=== PATIENT | female | born 1975 | race Caucasian/White ===

== ENCOUNTER 2020-12-03 11:13 | Outpatient (CLI) | payer MEDICARE, MEDICAID | END 2020-12-03 11:14 | disposition home or self-care (01) | LOC: BICMAMMO 11:13 | PROVIDERS: ATTEND Registered Nurse | DX: Z12.31 Encounter for screening mammogram for malignant neoplasm of breast (principal); Z80.3 Family history of malignant neoplasm of breast | CPT/HCPCS: 77063; 77067 ==

== ENCOUNTER 2021-05-09 13:32 | Outpatient (CLI) | payer MEDICARE, MEDICAID ==
[2021-05-09] MEDS ORDERED: Iopamidol 370 76% 100 ML VIAL ONE (15:12)
== END 2021-05-09 13:33 | disposition home or self-care (01) ==
LOC: BICCT 13:32
PROVIDERS: ATTEND Registered Nurse
DX: R10.84 Generalized abdominal pain (principal); N83.8 Other noninflammatory disorders of ovary, fallopian tube and broad ligament; E27.8 Other specified disorders of adrenal gland; N28.9 Disorder of kidney and ureter, unspecified; Z90.49 Acquired absence of other specified parts of digestive tract
CPT/HCPCS: 74177; Q9967

== ENCOUNTER 2022-05-23 11:46 | Outpatient (CLI) | payer MEDICARE, OTHER | END 2022-05-23 11:47 | disposition home or self-care (01) | LOC: BICMAMMO 11:46 | PROVIDERS: ATTEND Registered Nurse | DX: Z12.31 Encounter for screening mammogram for malignant neoplasm of breast (principal); Z80.3 Family history of malignant neoplasm of breast | CPT/HCPCS: 77063; 77067 ==

== ENCOUNTER 2022-06-13 10:31 | Inpatient (IN) | payer OTHER ==
[2022-06-13] MEDS ORDERED: hydrALAZINE 20 MG/ML VIAL SLOW IVP PRN (13:51)
[2022-06-13] MEDS ORDERED: Ondansetron PF 4 MG/2 ML Vial IVP PRN (13:51)
[2022-06-13] MEDS ORDERED: Dextrose 50% Abboject 50 ML SYRINGE SLOW IVP PRN (13:51)
[2022-06-13] MEDS ORDERED: Dextrose 5% in Water 1,000 ML IV PRN (13:51)
[2022-06-13] MEDS ORDERED: TETANUS, DIPHTHERIA TOX,ADULT (TDVAX) 0.5 ML VIAL IM ONE (13:51)
[2022-06-13] MEDS ORDERED: Promethazine HCl 25 MG/ML VIAL IM PRN (13:51)
[2022-06-13] MEDS ORDERED: Ondansetron ODT 4 MG TAB PO PRN (13:51)
[2022-06-13] MEDS ORDERED: Morphine 4 MG/ML VIAL SLOW IVP PRN ×2 (13:51→14:02)
[2022-06-13] MEDS ORDERED: Acetaminophen/Codeine 30-300mg Tablet PO PRN (13:55)
[2022-06-13] MEDS ORDERED: Cyclobenzaprine 10 MG TAB PO PRN (13:55)
[2022-06-13] MEDS ORDERED: Sodium Chloride 0.9% 1,000 ML IV SCH (14:00)
[2022-06-13] MEDS ORDERED: Ibuprofen 200 MG TAB PO SCH (14:15)
[2022-06-13] MEDS ORDERED: Acetaminophen 325 MG TAB PO SCH (14:15)
[2022-06-13] MEDS ORDERED: Insulin Regular 300 UNITS/3 ML VIAL SC PRN ×2 (14:44)
[2022-06-13] MEDS: Acetaminophen 325 MG TAB PO SCH ×2 (17:53→23:52)
[2022-06-13] MEDS ORDERED: Gabapentin 400 MG CAP PO SCH (21:00)
[2022-06-13] MEDS: Senokot S 8.6-50 MG TAB PO SCH (21:24)
[2022-06-13] MEDS: Sodium Chloride 0.9% 1,000 ML IV SCH (21:24)
[2022-06-13] MEDS: Famotidine 20 MG TAB PO SCH (21:24)
[2022-06-13] MEDS: lamoTRIgine 100 MG TAB PO SCH (21:24)
[2022-06-13] MEDS: Gabapentin 400 MG CAP PO SCH (21:24)
[2022-06-13] MEDS: Zonisamide 100 MG CAP PO SCH (21:25)
[2022-06-13] MEDS: Ibuprofen 200 MG TAB PO SCH (21:27)
[2022-06-14] MEDS: Acetaminophen 325 MG TAB PO SCH ×4 (06:04→22:08)
[2022-06-14] MEDS: Sodium Chloride 0.9% 1,000 ML IV SCH (06:04)
[2022-06-14] MEDS: Levothyroxine Sodium 125 MCG TAB PO SCH (06:04)
[2022-06-14] MEDS: Ibuprofen 200 MG TAB PO SCH ×3 (06:04→22:08)
[2022-06-14 08:13] LABS: #Eosinphils 0.1 thou/uL (0.0-0.7); #Lymphocytes 1.9 thou/uL (1.20-3.40); #Monocytes 0.6 thou/uL (0.11-0.59); %Basophils 0.3 % (0.0-1.0); %Eosinophils 0.8 % (0.0-10.0); %Lymphocytes 22.2 % (21.0-51.0); %Monocytes 7.4 % (0.0-10.0); %Neutrophils 69.2 % (42.0-75.0); Hemoglobin 13.5 g/dL (12.0-16.0); Mean Corpuscular HGB CONC 33.8 g/dL (32.0-36.0); Mean Corpuscular Hemoglobin 32.6 pg (27.0-31.0); Mean Corpuscular Volume 96.5 fL (78.0-98.0); Mean Platelet Volume 6.2 fL (7.4-10.4); Platelet Count 316 thou/uL (130-400); RBC Distribution Width 11.4 % (11.5-14.5); Red Blood Cell (RBC) Count 4.13 mill/uL (4.20-5.40); White Blood Cell (WBC) Count 8.7 thou/uL (4.8-10.8)
[2022-06-14 08:26] LABS: Anion Gap 12 mmol/L (10-20); BUN (Urea Nitrogen) 7 mg/dL (7.0-18.7); Calc. Creatinine Clearance 227 mL/min (70-130); Calcium 8.5 mg/dL (7.8-10.44); Carbon Dioxide 20 mmol/L (22-29); Chloride 110 mmol/L (98-107); Estimated GFR 114; Glucose 135 mg/dL (70-105); Phosphorus 2.2 mg/dL (2.3-4.7); Potassium 3.9 mmol/L (3.5-5.1); Sodium 138 mmol/L (136-145)
[2022-06-14] MEDS ORDERED: Gabapentin 400 MG CAP PO SCH ×2 (09:00→14:00)
[2022-06-14 09:08] LABS: SARS-CoV-2 NAA Rapid Test Not Detected (NotDetected)
[2022-06-14] MEDS: Gabapentin 400 MG CAP PO SCH ×2 (10:06→22:06)
[2022-06-14] MEDS: Famotidine 20 MG TAB PO SCH ×2 (10:06→22:07)
[2022-06-14] MEDS: lamoTRIgine 100 MG TAB PO SCH ×2 (10:07→22:07)
[2022-06-14] MEDS: Senokot S 8.6-50 MG TAB PO SCH ×2 (10:40→22:18)
[2022-06-14] MEDS: Polyethylene Glycol 3350 17 GM Packet PO SCH (10:40)
[2022-06-14] MEDS ORDERED: Fentanyl 100 MCG/2 ML VIAL ONE (11:51)
[2022-06-14] MEDS ORDERED: fentaNYL Citrate/PF 100 MCG/2 ML SYRINGE ONE (12:22)
[2022-06-14] MEDS ORDERED: CEFAZOLIN 2 GM VIAL ONE (12:41)
[2022-06-14] MEDS ORDERED: Sodium Chloride 0.9% 100 ML ONE (12:41)
[2022-06-14] MEDS ORDERED: Lidocaine 1% MPF 2 ML VIAL ONE (12:54)
[2022-06-14] MEDS ORDERED: Ropivacaine 0.5% HCl/PF (150 MG/30 ML VIAL) ONE (12:54)
[2022-06-14] MEDS ORDERED: Metoclopramide HCl 10 MG/2 ML VIAL ONE (12:54)
[2022-06-14] MEDS ORDERED: Rocuronium Bromide 10 MG/ML (10ML VIAL) ONE (12:54)
[2022-06-14] MEDS ORDERED: PROPOFOL 200 MG/20 ML VIAL ONE (12:54)
[2022-06-14] MEDS ORDERED: Ondansetron PF 4 MG/2 ML Vial ONE (12:54)
[2022-06-14] MEDS ORDERED: CEFAZOLIN 2 GM in Sodium Chloride 0.9% 100 ML IVPB SCH (13:00)
[2022-06-14] MEDS ORDERED: SUGAMMADEX SODIUM 200 MG/2 ML VIAL ONE (14:49)
[2022-06-14] MEDS ORDERED: hydrALAZINE 20 MG/ML VIAL ONE (15:24)
[2022-06-14] MEDS: Acetaminophen/Codeine 30-300mg Tablet PO SCH ×3 (18:06→23:12)
[2022-06-14] MEDS: CEFAZOLIN 2 GM in Sodium Chloride 0.9% 100 ML IVPB SCH (22:07)
[2022-06-14] MEDS: Zonisamide 100 MG CAP PO SCH (22:22)
[2022-06-15] MEDS: Acetaminophen 325 MG TAB PO SCH (05:03)
[2022-06-15] MEDS: Acetaminophen/Codeine 30-300mg Tablet PO SCH ×2 (05:04→12:45)
[2022-06-15] MEDS: Ibuprofen 200 MG TAB PO SCH (05:05)
[2022-06-15] MEDS: Levothyroxine Sodium 125 MCG TAB PO SCH (05:05)
[2022-06-15] MEDS: CEFAZOLIN 2 GM in Sodium Chloride 0.9% 100 ML IVPB SCH (05:06)
[2022-06-15] MEDS: Senokot S 8.6-50 MG TAB PO SCH (09:23)
[2022-06-15] MEDS: Famotidine 20 MG TAB PO SCH (09:23)
[2022-06-15] MEDS: Polyethylene Glycol 3350 17 GM Packet PO SCH (09:23)
[2022-06-15] MEDS: Gabapentin 400 MG CAP PO SCH (09:23)
[2022-06-15] MEDS: lamoTRIgine 100 MG TAB PO SCH (09:31)
[2022-06-15 11:45] VITALS: BP 134/87; TEMP 98.5
== END 2022-06-15 14:39 | disposition home or self-care (01) | DRG 494 ==
LOC: SJJU 10:31
PROVIDERS: ADMIT Surgery; ATTEND Surgery
PROC: 0PSF04Z Reposition Right Humeral Shaft with Internal Fixation Device, Open Approach (ICD-10-PCS; principal; 2022-06-14)
DX: S42.431A Displaced fracture (avulsion) of lateral epicondyle of right humerus, initial encounter for closed fracture (principal); Z20.822 Contact with and (suspected) exposure to COVID-19; S42.451A Displaced fracture of lateral condyle of right humerus, initial encounter for closed fracture; G40.909 Epilepsy, unspecified, not intractable, without status epilepticus; E11.9 Type 2 diabetes mellitus without complications; E03.9 Hypothyroidism, unspecified; S62.624A Displaced fracture of middle phalanx of right ring finger, initial encounter for closed fracture; W18.11XA Fall from or off toilet without subsequent striking against object, initial encounter; Y92.002 Bathroom of unspecified non-institutional (private) residence as the place of occurrence of the external cause; Z90.49 Acquired absence of other specified parts of digestive tract; Z90.89 Acquired absence of other organs; Z98.890 Other specified postprocedural states; Z88.8 Allergy status to other drugs, medicaments and biological substances; Z79.899 Other long term (current) drug therapy; Z79.890 Hormone replacement therapy
CPT/HCPCS: 36415; 36416; 76000; 80048; 80185; 83735; 84100; 85025; C1713; C1874; J0360; J0690; J2405; J2704; J2765; J2795; J3010; J3490; J7050; U0002

== ENCOUNTER 2022-07-13 09:54 | Outpatient (CLI) | payer OTHER | END 2022-07-13 09:55 | disposition home or self-care (01) | LOC: BICMAMMO 09:54 | PROVIDERS: ATTEND Registered Nurse | DX: Z13.820 Encounter for screening for osteoporosis (principal); S42.401A Unspecified fracture of lower end of right humerus, initial encounter for closed fracture; G40.409 Other generalized epilepsy and epileptic syndromes, not intractable, without status epilepticus; Z78.0 Asymptomatic menopausal state | CPT/HCPCS: 77080 ==

== ENCOUNTER 2025-06-09 12:49 | Outpatient (CLI) | payer OTHER, MEDICAID | END 2025-06-09 12:50 | disposition home or self-care (01) | LOC: BICMAMMO 12:49 | PROVIDERS: ATTEND Registered Nurse | DX: Z12.31 Encounter for screening mammogram for malignant neoplasm of breast (principal); Z80.3 Family history of malignant neoplasm of breast | CPT/HCPCS: 77063; 77067 ==